=== PATIENT | female | born 1955 | race American Indian/Alaskan Native ===

== ENCOUNTER 2018-10-17 10:20 | Outpatient (CLI) | payer BC ==
--- NOTE | 2018-10-21 09:17 | Mammography Report ---
BILATERAL SCREENING MAMMOGRAM DIGITAL WITH CAD and with 3D TOMOSYNTHESIS INDICATION: Screening. COMPARISONS: 12/14/2015 FINDINGS: 2D and 3D craniocaudal and mediolateral oblique views of both breasts were obtained utilizi [employer] digital acquisition. The breasts are mostly fatty. No suspicious findings are noted in either [address]. In addition to standard review, the examination was analyzed for possible abnormalities using a compu ter-assisted detection device (iCAD). IMPRESSION: NO EVIDENCE OF MALIGNANCY IN EITHER BREAST. SCREENING MAMMOGRAPHY IN ONE YEAR IS RECOMMENDED. BI-RADS CATEGORY 1: NEGATIVE COMMENT: Patient follow-up letters are generated by our [employer] application. Signer Name: Benjamín Tripathi MD Signed: 10/21/2018 9:12 AM Workstation Name: [id number]
--- NOTE | 2018-10-21 09:17 | Mammography Report ---
BILATERAL SCREENING MAMMOGRAM DIGITAL WITH CAD and with 3D TOMOSYNTHESIS INDICATION: Screening. COMPARISONS: 12/14/2015 FINDINGS: 2D and 3D craniocaudal and mediolateral oblique views of both breasts were obtained utilizi [employer] digital acquisition. The breasts are mostly fatty. No suspicious findings are noted in either [address]. In addition to standard review, the examination was analyzed for possible abnormalities using a compu ter-assisted detection device (iCAD). IMPRESSION: NO EVIDENCE OF MALIGNANCY IN EITHER BREAST. SCREENING MAMMOGRAPHY IN ONE YEAR IS RECOMMENDED. BI-RADS CATEGORY 1: NEGATIVE COMMENT: Patient follow-up letters are generated by our [employer] application. Signer Name: Benjamín Tripathi MD Signed: 10/21/2018 9:12 AM Workstation Name: [id number]
== END 2018-10-17 10:21 | disposition home or self-care (01) ==
LOC: SPVWC 10:20
PROVIDERS: ATTEND Obstetrics & Gynecology
DX: Z12.31 Encounter for screening mammogram for malignant neoplasm of breast (principal)
CPT/HCPCS: 77063; 77067